=== PATIENT | male | born 1965 | race Caucasian/White ===

== ENCOUNTER 2022-01-02 16:45 | Emergency (ER) | payer OTHER ==
[~2022-01-02] VITALS: Ht 170.2 cm; Wt 90.3 kg
[2022-01-02 16:48] VITALS: BP 136/95
[2022-01-02] MEDS ORDERED: HYDR-4902 PO ×2 (18:30→18:34)
[2022-01-02] MEDS ORDERED: IBU600T PO ×2 (18:30→18:34)
== END 2022-01-02 18:55 | disposition left against medical advice (07) ==
LOC: ER 16:45
DX: S83.92XA Sprain of unspecified site of left knee, initial encounter (principal); I10 Essential (primary) hypertension; Y04.8XXA Assault by other bodily force, initial encounter; Y93.89 Activity, other specified; Y92.89 Other specified places as the place of occurrence of the external cause; Y99.8 Other external cause status
CPT/HCPCS: 73562

== ENCOUNTER → 2022-01-03 | Emergency (ER) | payer OTHER ==
[~2022-01-03] VITALS: Ht 170.2 cm; Wt 90.7 kg
[~2022-01-03] MED LIST: HYDR-4902 PO; HYDROcodone-ACET 7.5/325MG TAB PO ONE; IBU600T PO
[2022-01-03 10:52] VITALS: BP 134/65
== END | disposition home or self-care (01) ==
LOC: ER 10:24
DX: S83.92XA Sprain of unspecified site of left knee, initial encounter (principal); E11.9 Type 2 diabetes mellitus without complications; I10 Essential (primary) hypertension; W19.XXXA Unspecified fall, initial encounter; Y93.89 Activity, other specified; Y92.89 Other specified places as the place of occurrence of the external cause; Y99.8 Other external cause status